=== PATIENT | male | born 1995 | race Caucasian/White ===

== ENCOUNTER 2025-04-07 20:22 | Inpatient (IN) | payer SELFPAY ==
--- NOTE | ~2025-04-07 | CT_ITS ---
CLINICAL HISTORY: fever, abd pain CT abdomen and pelvis with contrast Comparison: None provided Findings: The lung bases are clear. There is diffuse fatty infiltration of the liver. The spleen is upper limits of normal in size. Adrenal glands, pancreas, gallbladder and kidneys are unremarkable. No hydronephrosis. No bowel obstruction, pneumoperitoneum, or pneumatosis. Normal appendix. Urinary bladder is moderately distended but otherwise unremarkable. No acute fracture. IMPRESSION: No acute findings. Hepatic steatosis. This document has been electronically signed by: Cristobal Johnson MD on 04/08/2025 02:14:06
[2025-04-07 20:32] VITALS: BP 121/69; PULSE 128; RESP 18; TEMP 36.6; O2SAT 98; BMI 38.1
[2025-04-07 20:55] LABS: Hematocrit 48.0 % (42.0-52.0); Hemoglobin 16.6 g/dl (14.0-18.0); Mean Corpuscular HGB Conc 34.6 g/dl (31.0-36.0); Mean Corpuscular Hemoglobin 30.3 pg (27.0-33.0); Mean Corpuscular Volume 87.6 fL (80.0-98.0); NRBC Abs Auto 0.000 X10*3/uL (0.0-0.012); NRBC Pct Auto 0.0 /100WBC (0.0-0.2); Platelet Count 197 X10*3/uL (160-400); Red Blood Count 5.48 X10*6/uL (4.60-5.80); White Blood Count 12.5 X10*3/uL (4.8-10.8)
[2025-04-07 21:08] LABS: Alanine Aminotransferase 112 U/L (0-40); Albumin Level 5.0 g/dL (3.5-5.0); Alkaline Phosphatase 72 U/L (39-117); Anion Gap 14 (12-20); Aspartate Amino Transferase 34 U/L (5-37); Blood Urea Nitrogen 14 mg/dL (9-16); Calcium 9.2 mg/dL (8.4-10.2); Carbon Dioxide 23 mmol/L (22-29); Chloride 107 mmol/L (96-108); Creatinine Clr Calc Pharmacy 143.0; Estimated Glomerular Filt Rate > 60; Lipase 14 U/L (8-78); Potassium 4.0 mmol/L (3.3-5.1); Sodium 140 mmol/L (135-145); Total Protein 7.5 g/dL (6.5-8.0)
[2025-04-07 21:32] LABS: Neutrophils Percent Manual 74 % (45-73)
[2025-04-07 21:42] LABS: Band Neutrophils Percent 20 % (3-5); Lymphocytes Absolute Manual 0.5 X10*3/uL (1.2-4.9); Lymphocytes Percent Manual 4 % (20-40); Monocytes Absolute Manual 0.3 X10*3/uL (0.1-1.2); Monocytes Percent Manual 2 % (2-11); Neutrophils Absolute Manual 11.8 X10*3/uL (2.0-8.3); RBC Morphology NORMAL
[2025-04-07 21:43] LABS: Large Platelet PRESENT; Toxic Vacuolation PRESENT
[2025-04-07 22:31] LABS: Resp Syncy Virus RNA Qual PCR NEGATIVE (Negative); SARS COV2 PCR INHOUSE NEGATIVE (Negative)
--- OUTSIDE RECORDS SUMMARY | 2025-04-07 22:45 | XMS_ITS | Clinical Summary ---
Author Organization [employer] [facility] Address [address] [place] [address] Care Team Providers Care Carton Liner Name Role Phone Marie Sosa MD Primary Care Provid er Unavailable Family History Relation Name Status Comments Father Alive Mother Alive Sister Alive Dave Stephens Social History Tobacco Use Types Packs/Day Years Used Date Smoking Tobacco: Never Alcohol Use Standard Drinks/Week Comments Not Asked 0 (1 standard drink = 0.6 oz pur e alcohol) Sex and Gender Information Value Date Recorded Sex Assigned at Not on file Legal Sex Male 7:38 AM EST Gender Identity Not on file Sexual Orientation Not on file Plan of Treatment Health Maintenance Due Date Last Done Comments HPV Vaccines (3 - Male 3-dose series) 02/09/2016 11/17/2015, 07/19/2014 DTaP,Tdap,and Td Vaccines (7 - Td or Tdap) 09/23/2018 09/23/2008, 08/23/2000, 10/12/1998, Additional history exists HIV Screening 11/04/2023 Hepatitis C Screening 11/04/2023 Social Influencers of Health Screening 11/04/2023 Depression Screening 04/14/2024 COVID-19 Vaccine ( season) 2024 Influenza Vaccine (#1) 2024 04/27/2009, 2009 RSV Immunization Adult Patients (1 - 1-dose 75+ series) 08/01/2071 HIB Vaccines Aged Out 02/23/1997, 12/13, 1996 No longer eligible based on patient's age to complete this topic Hepatitis B Vaccines Completed 04/21/1997, 1996, 1996 IPV Vaccines Completed 08/23/2000, 02/12, 02/23/1997, Additional history exists MMR Vaccines Completed 08/23/2000, 08/15/1997 Pneumococcal Vaccine: Pediatrics (0 to 5 Years) and At-Risk Patients (6 to 49 Years) Completed 08/23/2000 Varicella Vaccines Aged Out 04/21/2004 No longer eligible based on patient's age to complete this topic Meningococcal ACWY Vaccine Completed 07/19/2014, Hepatitis A Vaccines Aged Out No long er eligible based on patient's age to complete this topic Meningococcal B Vaccine Aged Out No l onger eligible based on patient's age to complete this topic RSV Immunization Patients Under 20 months Aged Out No longer eligible based on patient's age to complete this topic Care Teams Carton Liner Relationship Specialty Start Date End Date Marie Sosa MD PCP - General Pediatrics 03/03/15
--- OUTSIDE RECORDS SUMMARY | 2025-04-07 22:45 | XMS_ITS | Data Portability ---
Author Organization [facility] [address] Address [address] [place] [address] Assessment No assessment recorded. Plan of Treatment Reminders Order Date Submit Date Provider Last Modified By Organization Details Last Modified Time Details Appointments None record ed. Lab None record ed. Referral None record ed. Procedures None record ed. Surgeries None record ed. Imaging None record ed. Medication Orders neomyc in-rickey ymyxin -hydro simone 3.5 mg-10, 000 unit/m L-1 % ear drops, susp 023 09/06/19 23 RADHA Not available 18:46:22 Patient TargetsNo targets recorded. Patient Instructions Encounter Date Encounter Id Patient Instructions Last Modified By Organization Details Last Modified Time 09/05/2022 [id number] decrease hearing and pressure bilateral ears requesting irrigation for cerumen removal. denies any fever or fever with chills, denies any SOB or respiratory distress. [email or web address] Not available 09/05/2022 18:45:50 Water in the ear , from swimming or bathing, makes the ear canal prone to infection. Hot and humid weather also predisposes to infection. Symptoms of otitis externa include: ear pain, fullness or itching in the ear, ear drainage, and temporary loss of hearing. These symptoms are similar to those caused by otitis media (middle ear infection). To differentiate between external ear infection and middle ear infection, the provider looks in the ear with an instrument called an otoscope. It is important to distinguish between the two infections, as they are treated differently: External otitis is treated with drops in the ear canal, while middle ear infection is sometimes treated with an antibiotic by mouth. MEASURES YOU SHOULD TAKE TO HELP TREAT EXTERNAL EAR INFECTION: 1. Use the ear drops regularly, as directed on the prescription. 2. The pinzon to treatment is getting the drops down into the canal and keeping the medicine there. To accomplish this: Lie on your side, with the unaffected ear down. Put three to four drops in the infected ear canal, then gently pull the outer ear back and forth several times, working the medicine deeper into the ear canal. Remain still, yreb-vch-cewq-down for about 15 minutes. 3. Keep the ear as dry as possible. Swimming should be postponed until the infection has cleared. Try to avoid getting water in the ear when bathing. If water does get in the ear, the canal can be gently dried with a hair blow dryer. Use the low heat setting, and keep the blow dryer about six inches from the ear. 4. Aizy-clb-takenpw pain medications can relieve discomfort associated with external otitis. Acetaminophen (Tylenol), ibuprofen, or naproxen can be taken, depending on individual preference. 5. Return to the [facility] in about one week. The provider can check to make sure the infection has cleared, continue the medicine if needed, okay a return to swimming, etc. 6. To prevent repeated episodes of otitis externa, try to keep the ear canal dry. Gentle swabbing with Q-tips (never deep into the canal), along with a hair blow dryer (low heat), can be used to dry the ear canal if it gets wet. 7. Should you develop severe pain, fever, severe headache, or stiff neck, see your personal/referral doctor or go to the closest emergency department promptly. Otitis externa does not normally cause these symptoms; another problem, requiring different treatment, could be present [facility] Not available 09/05/2022 18:45:41 Reason for Referral None Reported. Problems No Known Problems Procedures Surgical History Date Name Laterality Status Provider Name and Address Organization Details Recorded Time 3 Cerumen Removal by Irrigation tr Jules NP [address] [place], [address], [place] - [facility] 09/05/2022 18:47:10 Imaging Results None recorded. Procedure Notes None recorded. Medical Equipment None Reported. Allergies Allergen ID Allergen Name Allergen Category Reaction Reaction Severity Criticality Documentation Date Start Date Code Code System Note Provider Name and Address Organization Details Recorded Time 513696 latex environme nt,medica tion rash Not available Not available 09/05/2022 58043 91 RxNorm [facility] Abdalla [facility] 3 18:39:34 Medications Name Sig Start Date Stop Date Status Note LastModified by Organization Details LastModified Time cyclobenzap rine 10 mg tablet TAKE 1 TABLET BY MOUTH EVERY 8 HOURS NEEDED FOR MUSCLE SPASM 09/05 completed Not Available Not Available Not Available meloxicam 15 mg tablet TAKE 1 TABLET BY MOUTH EVERY DAY FOR 15 DAYS NEEDED FOR MUSCLE SPASM 09/05 completed Not Available Not Available Not Available neomycin-po lymyxin-hyd rocort 3.5 mg-10,000 unit/mL-1 % ear drops,susp INSTILL 4 DROPS INTO AFFECTED EAR(S) BY OTIC ROUTE 3 TIMES PER DAY x 7 days. 2022 active Not Available Not Available Not Avai lable Vitals Date Recorded Body height Body mass index (BMI) Body weight Oxygen saturation Heart rate Respiratory rate Body temperature Systolic And Diastolic Provider Name and Address Organization Details Last Updated DateTime 3 180.34 cm 31.8 kg/m2 909004. 06 g 99 % 72 /min 20 /min 97.8 [degF] 121/84 mm[Hg] Zuri Bashir [facility] 3 18:39:10 Social History None recorded. Functional Status None recorded. Mental Status None recorded. Family History Nothing Reported. Medical History No medical history recorded. Past Encounters Encounter ID Performer Location Encounter Start Date Encounter Closed Date Diagnosis/Indication Diagnosis SNOMED-CT Code Diagnosis ICD10 Code Diagnosis IMO Codes Diagnosis Note [id number] [address] [place] [address] 07/22/2018 12:33:44 07/22/2018 13:37:02 [id number] [address] [place] [address] 11/08/2019 10:13:26 11/08/2019 10:43:46 [id number] [address] [facility] [place] [address] 12/06/2021 15:55:33 12/06/2021 17:29:57 [id number] [address] [facility] [place] [address] 02/15/2019 15:13:11 02/15/2019 15:49:57 [id number] [address] [facility] [place] [address] 08/10/2018 13:33:31 08/10/2018 15:11:10 [id number] [address] [facility] [place] [address] 01/14/2018 09:13:30 01/14/2018 10:10:02 [id number] [address] [facility] [address] 08/17/2018 17:00:40 08/17/2018 19:22:17 [id number] [address] [facility] [place] [address] 05/08/2020 16:10:28 05/08/2020 17:23:04 [id number] Dez Jules, DIRECTOR OF TEACHING AND LEARNING [address] [facility] [place] [address] 09/05/2022 18:02:24 09/05/2022 19:26:46 Impacted cerumen in left ear [id number] 073074 H61.22 Otitis ext ramesh of left ear 7000825343 167731 H60.92 Health Concerns Section Related Observation LastModified by Organization Detai ls LastModified Time None Recorded Concern Status LastModified by Organization Details LastModified Time None Recorded Advance Directives Directive None Recorded Payers Insurance Date Sequence Insurance Name Policy Number Policy Alba Covered Member ID Alba Member ID Guarantor Name 11/15/2022 1 [employer] - [employer] - OPEN ACCESS PLUS - [employer] (PPO) [id number] Terrell Stephens [id number] 1 Terrell Stephens 09/05/2022 1 [employer] (PPO) [id number] Terrell Stephens [id number] Terrell Stephens 11/15/2022 1 [employer] [id number] Terrell Stephens [id number] Terrell Stephens Notes Date Note Type Note Provider Name and Address Organization Details Recorded Time 09/06/19 23 text/htm l Ear problem UCReported by PatientHPIFor quality, patient reportscloggedanddecreased hearing. For severity, patient reportsmoderate. For modifying factors, patient reportshurts to lie on, or pull on earbut reportsdoes not hurt to chewandoften has wax accumulation. For associated symptoms, patient reportspopping noise in the ears. For source of patient information, patient reportsinformation obtained from patient,patient arrived at urgent care ambulatory, andlearning styles: auditory. For location, patient reportsleft. For duration, patient reports2 weeks. For context, patient reportsno sick contacts,no recent swimming/water in ear, andno recent air travel. Dez Jules NP [address] [facility], [address], [place] - [facility] 09/05/2022 19:10:53
--- NOTE | 2025-04-07 23:29 | PC.NURSE ---
Addendum entered by Junie Wiseman RN 04/08/25 00:50: pts fluids still infusing. paused to give abx infusion for 30 min. Original Note: pt is a harsd stick. RN was able to obtain a #22 in the RFA. pt will need another line as the abx ordered are not compatible with the LR that is currently infusing.
[2025-04-07 23:48] VITALS: BP 101/56; PULSE 105; RESP 16; TEMP 36.4; O2SAT 98
[2025-04-08] VITALS (13 sets, daily range): BP systolic 98–120; BP diastolic 27–69; PULSE 75–114; RESP 16–25; TEMP 36.4–38.6; O2SAT 96–98; BMI 38.1
[2025-04-08] MEDS: iohexoL 350 MG/ML 100 ML INFUS..BTL 85 ML IV (01:35)
[2025-04-08] MEDS: Lactated Ringers 1,000 ML 999 ML IV ×2 (02:42→04:02)
[2025-04-08 02:43] LABS: Appearance Urine Clear; Glucose Urine UA Negative (Negative); PH 5.0 (5.0-9.0); Specific Gravity - Urine >= 1.030 (1.005-1.025)
--- NOTE | 2025-04-08 04:47 | PC.NURSE ---
abx were ordered before sepsis protocol was intiated. RN waited for blood cultures to be collected prior to starting abx.
--- NOTE | 2025-04-08 06:48 | ED_ITS ---
HPI - Nausea/Vomiting/Diarrhea General Chief complaint: Nausea/Vomiting/Diarrhea Stated complaint: vomiting, headache, dizziness Time Seen by Provider: 04/07/25 22:17 Source: patient Mode of arrival: ambulatory Limitations: no limitations History of Present Illness ED Provider: Dr. Afua Romo HPI Narrative: Mr. Stephens is a previously healthy adult who presents with acute onset vomiting and diarrhea beginning around 08:00 AM today. He reports that ?everything I eat comes back up from either end.? Since onset he has had approximately 6 episodes of emesis and 4 episodes of diarrhea (first two loose with food particles, now watery). He denies hematemesis or blood in stool. The last solid meal was pork, rice, and red beans last night; no one else who ate that meal is ill. He also ate linda-flavored candy not consumed by others. This morning he consumed breakfast and Sprite, both of which were vomited. He endorses fever at home with chills/shivering and later recorded a temperature to 101.4 ?F in the ED, but was 99.9 ?F on initial triage vitals. He describes central/mid-abdominal pain that worsens with oral intake. He has avoided food and fluids for ~3 hours to minimize vomiting. He received acetaminophen in the ED for fever to 101.4 ?F. No recent travel or antibiotic use. Related Data Allergies Allergy/AdvReac Type Severity Reaction Status Date / Time latex Allergy Unknown Verified 04/07/25 20:35 Review of Systems 2 Review of Systems: as per HPI, full review of systems performed and negative but for the above mentioned pertinent positives and negatives. [facility] Social History Social History Smoked in Last 30 Days: Yes Use of substances other than those prescribed or required for medical reasons: No Advance Directives: No Advance Directives Information Provided: No Do you have a plan to hurt others: No Plan Physical Exam 2 Exam: Exam: GENERAL: Ill-Appearing, appears uncomfortable. SKIN: Normal skin color for ethnicity, warm, dry, no rashes noted. HEENT:? Normocephalic, atraumatic, no stridor, dry mucous membranes, dentition intact, EOMI. NECK: Soft, supple, full ROM, midline structures nontender, no step-offs, no deformities, no lymphadenopathy. CHEST: Heart regular tachycardia, no murmurs, symmetric chest rise and fall. PULMONARY: Clear to auscultation bilaterally, diminished at the bases, no labored breathing, no wheezes/rhales/rhonchi. ABDOMINAL: Soft, nondistended, nontender, positive bowel sounds in all quadrants. : Deferred. MUSCULOSKELETAL: Normal tone, full range of motion, no deformities, no peripheral edema. NEURO: Alert and oriented x3, CN II through XII intact, equal strength and sensation bilateral upper and lower extremities, no focal neurologic deficits.? PSYCHIATRIC: Flat affect, fluid speech, good eye contact and appropriate demeanor. Vital Signs: Vital Signs: Last Vital Signs Temp 97.9 F 04/08/25 02:41 Pulse 106 H 04/08/25 02:42 Resp 22 H 04/08/25 02:42 BP 113/53 L 04/08/25 05:30 Pulse Ox 96 04/08/25 02:42 O2 Del Method Room Air 04/08/25 03:01 BMI result Body Mass Index 38.1 Medications Administered Discontinued Medications Generic Name Dose Route Start Last Admin Trade Name Freq PRN Reason Stop Dose Admin Lactated Ringer's 3,714.93 mls @ 3,714.93 mls/hr 04/07/25 22:18 04/08/25 02:40 Lr 30 ml/kg infuse over 1 hr (3714.93 ml) 04/07/25 23:17 Infused IV Infusion .Q1H ONE Piperacillin Sod/Tazobactam 100 mls @ 200 mls/hr 04/07/25 22:18 04/08/25 00:38 Sod 4.5 gm/ Sodium Chloride IV 04/07/25 22:47 Infused ONCE ONE Infusion Acetaminophen 1,000 mg in 100 mls @ 400 mls/hr 04/08/25 01:07 04/08/25 01:28 Ofirmev IV 04/08/25 01:21 Infused ONCE ONE Infusion Lactated Ringer's 1,000 mls @ 999 mls/hr 04/08/25 02:21 04/08/25 03:43 Lr IV 04/08/25 03:21 Infused .Q1H1M ONE Infusion Lactated Ringer's 1,000 mls @ 999 mls/hr 04/08/25 03:50 04/08/25 06:40 Lr IV 04/08/25 04:50 Infused .Q1H1M ONE Infusion Iohexol 85 ml 04/08/25 01:34 04/08/25 01:35 Iohexol 350 Mg/Ml 100 Ml Infus..Btl IV 04/08/25 01:35 85 ml ONCE ONE Administration Ondansetron HCl 4 mg 04/07/25 22:18 04/07/25 22:50 Ondansetron Hcl 4 Mg/2 Ml Vial IVPUSH 04/07/25 22:19 4 mg ONCE ONE Administration Medical Decision Making Medical Decision Making MDM Narrative: Emergency Department Course Initial laboratory evaluation notable for leukocytosis with bandemia. Sepsis protocol initiated with a 30 cc/kg IV fluid bolus (~4 L). Empiric IV antibiotics and IV antiemetic were administered. The patient later spiked a temperature of 101.4 ?F and received acetaminophen. CT of the abdomen showed no evidence of acute process. Despite fluids, blood pressure remained low and heart rate elevated; urine output remained absent. An additional 1 L IV crystalloid was ordered and a bladder scan planned to assess for retention. Stool cultures ordered if specimen obtainable. Despite 6 L of IV fluid, patient remains mildly hypotensive though his map is over 65. He is finally making urine which is extremely dark. I feel at least part of his blood work being so abnormal is related to dehydration and vomiting though his symptoms have only been ongoing for the last 16 hours or so. Ordered stool cultures but he has not made a sample yet. Plan for admission for further care and evaluation. Assessment & Plan 29-year-old male previously healthy presenting with nausea vomiting and diarrhea ongoing for the last 16 hours or so. Differential diagnosis includes gastroenteritis, surgical emergency such as obstruction, enteritis, hyperglycemia, acidosis, food or drug ingestion, pancreatitis, CVA, allergic reaction such as anaphylaxis, cannabis hyperemesis syndrome or cyclic vomiting syndrome, among many others.? Patient is showing signs of acute dehydration or hemodynamic instability.? They are having associated abdominal pain. ? Broad-based work-up was initiated based on above history and physical exam. Diagnoses: * 1. Suspected infectious gastroenteritis / foodborne illness * 2. Dehydration * 3. Possible sepsis secondary to GI infection * 4. Abdominal pain Plan: * IV antiemetic for nausea/vomiting. * Aggressive IV fluid resuscitation: 30 cc/kg bolus (~4 L) per sepsis protocol; administer additional 1 L IV crystalloid and reassess. * Empiric IV antibiotics. * Abdominal imaging obtained (CT abdomen negative for acute pathology). * Stool studies (culture, ova/parasite, viral PCR) when available. * Ice chips and trial of PO fluids after antiemetic, monitor tolerance. * Bladder scan to evaluate for urinary retention. * Continue to monitor for persistent hypotension, tachycardia, and anuria despite fluids. Disposition: Admit to hospitalist for further care and evaluation of sepsis, bandemia, likely enteritis. Differential Diagnosis Differential Diagnoses: The differential diagnosis associated with the presentation includes (as above) Admission/Observation Consideration of admission/observation: Escalation of care including admission/observation considered Consult Healthcare Provider Management of the patient was discussed with: Hospitalist Lab Data MDM Lab Attestation statement: I reviewed the patient's lab results. 04/07/25 20:45 04/07/25 20:45 Labs: Lab Results 04/07/25 04/07/25 04/07/25 Range/Units 20:45 21:50 23:15 WBC 12.5 H (4.8-10.8) X10*3/uL RBC 5.48 (4.60-5.80) X10*6/uL Hgb 16.6 (14.0-18.0) g/dl Hct 48.0 (42.0-52.0) % MCV 87.6 (80.0-98.0) fL MCH 30.3 (27.0-33.0) pg MCHC 34.6 (31.0-36.0) g/dl RDW 12.0 (11.0-16.0) % Plt Count 197 (160-400) X10*3/uL MPV 10.4 (9.4-12.4) fL Immature Gran % (Auto) Cancelled Neut % (Auto) Cancelled Lymph % (Auto) Cancelled [place] % (Auto) Cancelled Eos % (Auto) Cancelled Baso % (Auto) Cancelled Lymph # (Auto) Cancelled [place] # (Auto) Cancelled Eos # (Auto) Cancelled Baso # (Auto) Cancelled Abs Immat Gran (auto) Cancelled Absolute Neuts (auto) Cancelled Absolute Nucleated RBC 0.000 (0.0-0.012) X10*3/uL Nucleated RBC % (auto) 0.0 (0.0-0.2) /100WBC Neutrophils % (Manual) 74 H (45-73) % Band Neutrophils % 20 H (3-5) % Lymphocytes % (Manual) 4 L (20-40) % Monocytes % (Manual) 2 (2-11) % Abs Neuts (Manual) 11.8 H (2.0-8.3) X10*3/uL Lymphocytes # (Manual) 0.5 L (1.2-4.9) X10*3/uL Monocytes # (Manual) 0.3 (0.1-1.2) X10*3/uL Toxic Vacuolation PRESENT Platelet Estimate NORMAL (NORMAL) Large Platelets PRESENT Plt Morphology Comment NOTED RBC Morphology NORMAL Smear Tech's Comments MANUAL DIFF Sodium 140 (135-145) mmol/L Potassium 4.0 (3.3-5.1) mmol/L Chloride 107 (96-108) mmol/L Carbon Dioxide 23 (22-29) mmol/L Anion Gap 14 (12-20) BUN 14 (9-16) mg/dL Creatinine 1.03 (0.5-1.4) mg/dL Estim Creat Clear Calc 143.0 Estimated GFR > 60 Random Glucose 130 H (60-115) mg/dL Lactic Acid 1.9 (0.5-2.0) mmol/L Calcium 9.2 (8.4-10.2) mg/dL Total Bilirubin 2.4 H (0.0-1.0) mg/dL Direct Bilirubin 0.4 (0.0-0.5) mg/dL AST 34 (5-37) U/L ALT 112 H (0-40) U/L Alkaline Phosphatase 72 (39-117) U/L Total Protein 7.5 (6.5-8.0) g/dL Albumin 5.0 (3.5-5.0) g/dL Lipase 14 (8-78) U/L Urine Color Urine Appearance Urine pH (5.0-9.0) Ur Specific [place] (1.005-1.025) Urine Protein (Neg-Trace) mg/dL Urine Glucose (UA) (Negative) mg/dL Urine Ketones (Negative) mg/dL Urine Blood (Negative) Urine Nitrite (Negative) Ur Leukocyte Esterase (Negative) Influenza Type A (PCR) NEGATIVE (Negative) Influenza Type B (PCR) NEGATIVE (Negative) RSV RNA Qual (PCR) NEGATIVE (Negative) SARS-CoV-2 RNA (RT-PCR) NEGATIVE (Negative) 04/08/25 Range/Units 02:33 WBC (4.8-10.8) X10*3/uL RBC (4.60-5.80) X10*6/uL Hgb (14.0-18.0) g/dl Hct (42.0-52.0) % MCV (80.0-98.0) fL MCH (27.0-33.0) pg MCHC (31.0-36.0) g/dl RDW (11.0-16.0) % Plt Count (160-400) X10*3/uL MPV (9.4-12.4) fL Immature Gran % (Auto) Neut % (Auto) Lymph % (Auto) [place] % (Auto) Eos % (Auto) Baso % (Auto) Lymph # (Auto) [place] # (Auto) Eos # (Auto) Baso # (Auto) Abs Immat Gran (auto) Absolute Neuts (auto) Absolute Nucleated RBC (0.0-0.012) X10*3/uL Nucleated RBC % (auto) (0.0-0.2) /100WBC Neutrophils % (Manual) (45-73) % Band Neutrophils % (3-5) % Lymphocytes % (Manual) (20-40) % Monocytes % (Manual) (2-11) % Abs Neuts (Manual) (2.0-8.3) X10*3/uL Lymphocytes # (Manual) (1.2-4.9) X10*3/uL Monocytes # (Manual) (0.1-1.2) X10*3/uL Toxic Vacuolation Platelet Estimate (NORMAL) Large Platelets Plt Morphology Comment RBC Morphology Smear Tech's Comments Sodium (135-145) mmol/L Potassium (3.3-5.1) mmol/L Chloride (96-108) mmol/L Carbon Dioxide (22-29) mmol/L Anion Gap (12-20) BUN (9-16) mg/dL Creatinine (0.5-1.4) mg/dL Estim Creat Clear Calc Estimated GFR Random Glucose (60-115) mg/dL Lactic Acid (0.5-2.0) mmol/L Calcium (8.4-10.2) mg/dL Total Bilirubin (0.0-1.0) mg/dL Direct Bilirubin (0.0-0.5) mg/dL AST (5-37) U/L ALT (0-40) U/L Alkaline Phosphatase (39-117) U/L Total Protein (6.5-8.0) g/dL Albumin (3.5-5.0) g/dL Lipase (8-78) U/L Urine Color Yellow Urine Appearance Clear Urine pH 5.0 (5.0-9.0) Ur Specific [place] >= 1.030 H (1.005-1.025) Urine Protein Negative (Neg-Trace) mg/dL Urine Glucose (UA) Negative (Negative) mg/dL Urine Ketones Negative (Negative) mg/dL Urine Blood Negative (Negative) Urine Nitrite Negative (Negative) Ur Leukocyte Esterase Negative (Negative) Influenza Type A (PCR) (Negative) Influenza Type B (PCR) (Negative) RSV RNA Qual (PCR) (Negative) SARS-CoV-2 RNA (RT-PCR) (Negative) Radiology Impression Discussion of test interpretation with radiology: I have reviewed the radiologist's reading. Radiologist Impression: CT abdomen and pelvis with contrast Comparison: None provided Findings: The lung bases are clear. There is diffuse fatty infiltration of the liver. The spleen is upper limits of normal in size. Adrenal glands, pancreas, gallbladder and kidneys are unremarkable. No hydronephrosis. No bowel obstruction, pneumoperitoneum, or pneumatosis. Normal appendix. Urinary bladder is moderately distended but otherwise unremarkable. No acute fracture. IMPRESSION: No acute findings. Hepatic steatosis. This document has been electronically signed by: Cristobal Johnson MD on 04/08/2025 02:14:06 Critical Care Time Critical Care Time Critical Care Time: Yes Total Critical Care Time: 45 Attestation: CRITICAL CARE TIME: 45 minutes of critical care time was spent in direct patient care at the bedside or in the immediate area with this patient. Critical care was necessary to treat or prevent imminent or life-threatening deterioration of the following conditions septic shock due to gastroenteritis/dehydration. This patient is high risk for decompensation and/or . This time was spent assessing and managing the patient, interpreting labs and imaging, coordinating care with other medical providers, gathering history from either the patient, their representatives, EMS or chart review, and discussing management with admitting team. Discharge Plan Discharge Clinical Impression: Dehydration, Gastroenteritis, Severe sepsis, Bandemia Patient Disposition: Admitted As Inpatient Print Language: Martiniquais
--- NOTE | 2025-04-08 07:34 | P.HPHOSP_ITS ---
History of Present Illness Date of Service: 04/08/25 Attending physician on admission: Sebas Hurtado Chief Complaint: N/V/D This is a 29 year old male who presents with nausea, vomiting and diarrhea. He began having symptoms shortly after eating breakfast on 04/07 around 8am. He ate a family meal the evening before and he ate a family meal on the morning the symptoms began but there is no one else with similar symptoms. He presented to the ED due to persistent symptoms. He had associated abdominal cramping. He reported chills and while in the emergency department was noted to have fever of 101.4, was tachycardic, tachypneic. Blood pressure soft despite receiving 30 cc/kg bolus of fluid. He received 2 additional fluid boluses. Lactic acid was within normal limits. He received empiric antibiotics. CT scan of the abdomen and pelvis showed no acute pathology. Patient denies any recent takeout food or recent travel. He denies urinary symptoms, UA was negative. Flu, RSV and covid 19 screening was negative. Review of Systems 2 Review of Systems: Yes all other systems are reviewed and are negative Constitutional: Constitutional: Reports chills and Reports fever(s) Cardiovascular: Cardiovascular: Denies chest pain, Denies palpitations and Denies dyspnea Respiratory: Respiratory: Denies cough and Denies dyspnea Gastrointestinal: Gastrointestinal: Reports abdominal pain, Reports diarrhea, Reports nausea and Reports vomiting Endocrine: Endocrine: Denies palpitations [facility] Social History Smoked in Last 30 Days: Yes Use of substances other than those prescribed or required for medical reasons: No Advance Directives: No Advance Directives Information Provided: No Do you have a plan to hurt others: No Plan Meds Allergies Allergy/AdvReac Type Severity Reaction Status Date / Time latex Allergy Unknown Verified 04/07/25 20:35 Home Medications ?Medication ?Instructions ?Recorded ?Confirmed ?Last Taken ?Type No Known Home Meds 04/08/25 04/08/25 Un known History Physical Exam 2 Vital Signs and Narrative: Vital Signs: Last Vital Signs Temp 97.9 F 04/08/25 02:41 Pulse 106 H 04/08/25 02:42 Resp 22 H 04/08/25 02:42 BP 113/53 L 04/08/25 05:30 Pulse Ox 96 04/08/25 02:42 O2 Del Method Room Air 04/08/25 03:01 BMI result Body Mass Index 38.1 Const: General: alert and awake Nutritional Appearance: obese O rientation/consciousness: patient oriented x3 Resp: Effort & Inspection: normal respiratory effort, able to speak in complete sentences, no respiratory distress and no use of accessory muscles A uscultation: clear to auscultation bilaterally Cardio: Rate: regular rate Rhythm: regular rhythm GI: Other: no guarding no rebound no regidity Inspection: No distended Palpation (GI): Soft to palpation Neuro: General: patient oriented x3, moves all extremities and CN's II-XI intact bilaterally Extrem: General: No pedal edema Results Labs 04/08/25 07:49 04/08/25 07:49 Labs: Laboratory Results - last 24 hr 04/07/25 04/07/25 04/07/25 20:45 21:50 23:15 MCV 87.6 MCH 30.3 MCHC 34.6 RDW 12.0 Plt Count 197 MPV 10.4 Immature Gran % (Auto) Cancelled Neut % (Auto) Cancelled Lymph % (Auto) Cancelled [place] % (Auto) Cancelled Eos % (Auto) Cancelled Baso % (Auto) Cancelled Lymph # (Auto) Cancelled [place] # (Auto) Cancelled Eos # (Auto) Cancelled Baso # (Auto) Cancelled Abs Immat Gran (auto) Cancelled Absolute Neuts (auto) Cancelled Absolute Nucleated RBC 0.000 Nucleated RBC % (auto) 0.0 Neutrophils % (Manual) 74 H Band Neutrophils % 20 H Lymphocytes % (Manual) 4 L Monocytes % (Manual) 2 Abs Neuts (Manual) 11.8 H Lymphocytes # (Manual) 0.5 L Monocytes # (Manual) 0.3 Toxic Vacuolation PRESENT Platelet Estimate NORMAL Large Platelets PRESENT Plt Morphology Comment NOTED RBC Morphology NORMAL Smear Tech's Comments MANUAL DIFF Anion Gap 14 Estim Creat Clear Calc 143.0 Estimated GFR > 60 Random Glucose 130 H Lactic Acid 1.9 Calcium 9.2 Total Bilirubin 2.4 H Direct Bilirubin 0.4 AST 34 ALT 112 H Alkaline Phosphatase 72 Total Protein 7.5 Albumin 5.0 Lipase 14 Urine Color Urine Appearance Urine pH Ur Specific [place] Urine Protein Urine Glucose (UA) Urine Ketones Urine Blood Urine Nitrite Ur Leukocyte Esterase Influenza Type A (PCR) NEGATIVE Influenza Type B (PCR) NEGATIVE RSV RNA Qual (PCR) NEGATIVE SARS-CoV-2 RNA (RT-PCR) NEGATIVE 04/08/25 02:33 MCV MCH MCHC RDW Plt Count MPV Immature Gran % (Auto) Neut % (Auto) Lymph % (Auto) [place] % (Auto) Eos % (Auto) Baso % (Auto) Lymph # (Auto) [place] # (Auto) Eos # (Auto) Baso # (Auto) Abs Immat Gran (auto) Absolute Neuts (auto) Absolute Nucleated RBC Nucleated RBC % (auto) Neutrophils % (Manual) Band Neutrophils % Lymphocytes % (Manual) Monocytes % (Manual) Abs Neuts (Manual) Lymphocytes # (Manual) Monocytes # (Manual) Toxic Vacuolation Platelet Estimate Large Platelets Plt Morphology Comment RBC Morphology Smear Tech's Comments Anion Gap Estim Creat Clear Calc Estimated GFR Random Glucose Lactic Acid Calcium Total Bilirubin Direct Bilirubin AST ALT Alkaline Phosphatase Total Protein Albumin Lipase Urine Color Yellow Urine Appearance Clear Urine pH 5.0 Ur Specific [place] >= 1.030 H Urine Protein Negative Urine Glucose (UA) Negative Urine Ketones Negative Urine Blood Negative Urine Nitrite Negative Ur Leukocyte Esterase Negative Influenza Type A (PCR) Influenza Type B (PCR) RSV RNA Qual (PCR) SARS-CoV-2 RNA (RT-PCR) Assessment and Plan (1) Gastroenteritis: Status: Acute Plan This is a 29-year-old male with no significant past medical history who presents to the emergency department with nausea, vomiting, diarrhea found to have fever and hypotension probable viral sepsis due to underlying gastroenteritis s/p 30cc/kg bolus lactic acid wnl no indication for further abx at this time continue IVF and monitor bp trend closely check stool studies repeat labs symptomatic support has been unable to tolerate po, start clear liquids and advance as tolerated blood cultures pending Elevated bilirubin no previous labs for comparison possibly due to above trend if no improvement consider abdominal US dvt ppx - mechanical devices, early ambulation Patient will likely require two midnight stay in the hospital for management of hypotension/viral sepsis unable to take po requiring close monitoring of blood pressure Quality Stroke Does the patient have a stroke diagnosis?: No VTE Prior VTE?: No VTE Risk Level:: Medical - moderate - high VTE Device Contraindication: N/A - Device Ordered VTE Drug Contraindication: Treatment Not Indicated
[2025-04-08 07:52] LABS: MANUAL DIFF FLAG NO
[2025-04-08] MEDS: Lactated Ringers 1,000 ML 125 ML IVCONT ×2 (07:56→16:00)
[2025-04-08 07:59] LABS: Hematocrit 38.9 % (42.0-52.0); Hemoglobin 13.4 g/dl (14.0-18.0); Imm Gran Abs Auto 0.02 X10*3/uL (0.00-0.03); Imm Gran Pct Auto 0.3 % (0.0-0.4); Lymphocytes Absolute Auto 1.1 X10*3/uL (1.2-4.9); Mean Corpuscular HGB Conc 34.4 g/dl (31.0-36.0); Mean Corpuscular Hemoglobin 30.5 pg (27.0-33.0); Mean Corpuscular Volume 88.4 fL (80.0-98.0); NRBC Abs Auto 0.000 X10*3/uL (0.0-0.012); NRBC Pct Auto 0.0 /100WBC (0.0-0.2); Platelet Count 146 X10*3/uL (160-400); Red Blood Count 4.40 X10*6/uL (4.60-5.80)
[2025-04-08 08:08] LABS: Alanine Aminotransferase 71 U/L (0-40); Albumin Level 3.6 g/dL (3.5-5.0); Alkaline Phosphatase 51 U/L (39-117); Anion Gap 10 (12-20); Aspartate Amino Transferase 32 U/L (5-37); Blood Urea Nitrogen 10 mg/dL (9-16); Carbon Dioxide 24 mmol/L (22-29); Chloride 108 mmol/L (96-108); Creatinine Clr Calc Pharmacy 191.3; Estimated Glomerular Filt Rate > 60; Potassium 3.4 mmol/L (3.3-5.1); Sodium 139 mmol/L (135-145); Total Protein 5.5 g/dL (6.5-8.0)
[2025-04-08 08:10] LABS: White Blood Count 6.7 X10*3/uL (4.8-10.8)
[2025-04-08 08:13] LABS: Calcium 8.3 mg/dL (8.4-10.2)
--- NOTE | 2025-04-08 08:52 | PHA.MEDREC ---
Addendum entered by Candace Romero RPh 04/08/25 08:53: reviewed Original Note: Pharmacy Consult ? Medication Reconciliation Pharmacy has completed the medication reconciliation. Spoke with pt and he confirmed he is not taking any medications at this time.
[2025-04-09] MEDS: Lactated Ringers 1,000 ML 125 ML IVCONT ×2 (00:03→08:18)
[2025-04-09 03:50] VITALS: BP 124/73; PULSE 75; RESP 18; TEMP 37; O2SAT 99
[2025-04-09 08:00] VITALS: BP 107/58; PULSE 80; RESP 16; O2SAT 95
[2025-04-09] MEDS: 0.9 % Sodium Chloride Flush 3 ML SYRINGE IVFLUSH (08:18)
[2025-04-09 08:50] LABS: Chlamydia pneumoniae PCR Not Detected (Not Detect.); Coronavirus 229E PCR Not Detected (Not Detect.); Coronavirus HKU1 PCR Not Detected (Not Detect.); Coronavirus NL63 PCR Not Detected (Not Detect.); Coronavirus OC43 PCR Not Detected (Not Detect.); RSV PCR Not Detected (Not Detect.); Rhino/Enterovirus PCR Not Detected (Not Detect.)
[2025-04-09 08:57] LABS: SARS-CoV-2 PCR Not Detected (Not Detect.)
[2025-04-09 08:58] LABS: Influenza A H1 PCR Not Detected (Not Detect.); Influenza A H1-2009 PCR Not Detected (Not Detect.); Influenza A H3 PCR Not Detected (Not Detect.)
[2025-04-09 09:20] LABS: Alanine Aminotransferase 91 U/L (0-40); Albumin Level 4.2 g/dL (3.5-5.0); Alkaline Phosphatase 56 U/L (39-117); Anion Gap 11 (12-20); Aspartate Amino Transferase 37 U/L (5-37); Blood Urea Nitrogen 4 mg/dL (9-16); Calcium 8.9 mg/dL (8.4-10.2); Carbon Dioxide 26 mmol/L (22-29); Chloride 106 mmol/L (96-108); Creatinine Clr Calc Pharmacy 196.4; Estimated Glomerular Filt Rate > 60; Potassium 3.5 mmol/L (3.3-5.1); Sodium 139 mmol/L (135-145); Total Protein 6.4 g/dL (6.5-8.0)
[2025-04-09 09:42] LABS: HBS Num1 0.27 mIU/mL (0-7.99); HBc Num1 0.06 S/CO (0.00-0.79); HBsAGNum1 0.33 S/CO (0.00-0.99); Hepatitis A Antibody IgM 0.13 Index (0-0.79); Hepatitis B Surface Antigen Negative (Negative); ~HepC Num1 0.06 S/CO (0.00-0.79); ~Hepatitis A Antibody IgM Nonreactive (Nonreactive); ~Hepatitis B Surface Antibody NONREACTIVE (Nonreactive); ~Hepatitis C Antibody Nonreactive (Nonreactive)
--- NOTE | 2025-04-09 11:45 | PM.DS ---
DS: Providers Provider Date of admission: 04/08/25 06:54 Date of discharge: 04/09/25 Primary care physician: None Physician Attending physician on discharge: Sebas Hurtado Discharging clinician: Sebas Hurtado DS: Diagnosis Discharge Diagnosis (1) Gastroenteritis: Status: Acute DS: Summary Hospital Course Hospital Course: HPI:29 year old male who presents with nausea, vomiting and diarrhea. He began having symptoms shortly after eating breakfast on 04/07 around 8am. He ate a family meal the evening before and he ate a family meal on the morning the symptoms began but there is no one else with similar symptoms. He presented to the ED due to persistent symptoms. He had associated abdominal cramping. He reported chills and while in the emergency department was noted to have fever of 101.4, was tachycardic, tachypneic. Blood pressure soft despite receiving 30 cc/kg bolus of fluid. He received 2 additional fluid boluses. Lactic acid was within normal limits. He received empiric antibiotics. CT scan of the abdomen and pelvis showed no acute pathology. Patient denies any recent takeout food or recent travel. He denies urinary symptoms, UA was negative. Flu, RSV and covid 19 screening was negative. Hospital course: Patient was admitted for possible viral sepsis with the underlying gastro enteritis likely viral-received IV fluid, blood pressure improved, nausea vomiting diarrhea improved with the supportive care, blood culture negative at 24 hours. Leukocytosis improved.RPP negative. Mild bilirubin and ALT elevation-improving, CTA abdomen showed hepatic steatosis, hepatitis a,b,c screen nonreactive. With the above supportive care patient seems to be improved significantly, sepsis resolved,no more diarrhea or nausea vomiting, tolerating diet, patient will be going home encouraged for p.o. intake and hydration. Monitor LFTs outpatient and further workup out patiently. Avoid hepatotoxic medications. If any further worsening of symptoms patient needs to go to nearest emergency room for further evaluation. Above management discussed with the patient detail length he understand and in agreement with the above plan, time spent 40 minute. Time Attestation Total time managing care of this patient today: 40 mintues. Discharge Coordination Time (in mins): 40 min Quality: Safe Use of Opioids Does Pt have an Active Cancer Diagnosis on the Problem List?: No Quality: Stroke Does the patient have a stroke diagnosis?: No Physical Exam Exam: Exam: Appearance: Alert.? Oriented X3.? not in distress.? Eyes: Pupils equal, round and reactive to light.? Sclera nonicteric.? ENT: Pharynx normal.? Moist mucous membranes. cvs: rrr, [id number] . res: clear to auscultation ,no rhonchii or wheezing abd: no rebound or guarding ,nt, bs present. ext pulses present , no cyanosis . neuro: axo3 , nonfocal. Vital Signs: Vital Signs: Last Vital Signs Temp 98.6 F 04/09/25 03:50 Pulse 80 04/09/25 08:00 Resp 16 04/09/25 08:00 BP 107/58 L 04/09/25 08:00 Pulse Ox 95 04/09/25 08:00 O2 Del Method Room Air 04/09/25 08:00 BMI result Body Mass Index 38.1 DS: Data Data Completed and Pending Labs on day of discharge: Laboratory Results - last 24 hr 04/08/25 04/09/25 18:24 08:17 Sodium 139 Potassium 3.5 Chloride 106 Carbon Dioxide 26 Anion Gap 11 L BUN 4 L Creatinine 0.75 Estim Creat Clear Calc 196.4 Estimated GFR > 60 Random Glucose 89 Calcium 8.9 D Total Bilirubin 1.9 H AST 37 ALT 91 H Alkaline Phosphatase 56 Total Protein 6.4 L Albumin 4.2 Respiratory Panel Shahid See Note Adenovirus (Rapid PCR) Not Detected B.pert (TEM-PCR) Not Detected B.parapertussis DNA PCR Not Detected C. pneumoniae DNA (PCR) Not Detected Coronavirus OC43 (PCR) Not Detected Coronavirus HKU1 (PCR) Not Detected Coronavirus 229E (PCR) Not Detected Coronavirus NL63 (PCR) Not Detected Hepatitis A IgM Ab Nonreactive Hep Bs Antigen Negative Hep Bs Antibody NONREACTIVE Hep B Core Total Ab Nonreactive Hepatitis C Ab (EIA) Nonreactive Human Metapneumovir PCR Not Detected Influenza A (RT-PCR) Not Detected Influenza A (H1) PCR Not Detected Influ A (H1/09) PCR Not Detected Influenza A (H3) PCR Not Detected Influenza B (RT-PCR) Not Detected M. pneumoniae (PCR) Not Detected Parainfluenza 1 (PCR) Not Detected Parainfluenza 2 (PCR) Not Detected Parainfluenza 3 (PCR) Not Detected Parainfluenza 4 (PCR) Not Detected RSV (PCR) Not Detected Entero/Rhino (PCR) Not Detected SARS-CoV-2 RNA (RT-PCR) Not Detected Preliminary micro results at discharge 04/07/25 23:15 Blood Culture - Preliminary Blood - Venous No growth after 24 hours. 04/07/25 23:00 Blood Culture - Preliminary Blood - Venous No growth after 24 hours. Imaging Chest x-ray: My impression: ct abd: No acute findings. Hepatic steatosis. Discharge Plan Discharge Anticipated Discharge Date/Time: 04/09/25 11:37 Patient Disposition: Home, Self-Care Discharge Diagnosis: Possible viral gastroenteritis Referrals: Physician,None [Primary Care Provider, Medical] - 1 Week Discharge Medications: New ondansetron 4 mg tablet,disintegrating 4 mg PO Q8H PRN (Reason: nausea and vomiting) Qty: 10 0RF Discharge Orders: Discharge Order (Routine); Ordered 04/09/25 Ordered By: Sebas Hurtado Diet: Advance to usual diet Activity on Discharge: As tolerated Stand Alone Forms: Patient Portal Discharge page Print Language: Yoruba Care Plan Goals: Patient was admitted for possible viral sepsis with the underlying gastro enteritis likely viral-received IV fluid, blood pressure improved, nausea vomiting diarrhea improved with the supportive care, blood culture negative at 24 hours. Leukocytosis improved.RPP negative. Mild bilirubin and ALT elevation-improving, CTA abdomen showed hepatic steatosis, hepatitis a,b,c screen nonreactive. With the above supportive care patient seems to be improved significantly, sepsis resolved,no more diarrhea or nausea vomiting, tolerating diet, patient will be going home encouraged for p.o. intake and hydration. Monitor LFTs outpatient and further workup out patiently. Avoid hepatotoxic medications. If any further worsening of symptoms patient needs to go to nearest emergency room for further evaluation. Health Concerns: As above. Plan of Treatment: As above. Assessment: As above. Discharge Date/Time: 04/09/25 14:07
--- NOTE | 2025-04-09 13:02 | MHC.CM.PN ---
PT REPORTS HE LIVES WITH HIS S/O AND IS INDEPENDENT WITH CARE HE HAS NO SERVICES OR DME DECLINES A HCP NO PCP SAYS HE HAS ALREADY MET WITH [facility] [place] [facility] FOR ASSISTANCE WITH HEALTH INSURANCE DC TODAY, HOME WITH NO SERVICES FAMILY TO TRANSPORT
== END 2025-04-09 14:07 | disposition home or self-care (01) | DRG 872 ==
LOC: HO.ED 22:43 → HO.EDOVER 04-08 06:58 → HO.S3 04-08 11:26
PROVIDERS: Physician Assistant Medical; Admitting Provider Internal Medicine; Emergency Provider Emergency Medicine; Visit Provider Internal Medicine
DX: A41.89 Other specified sepsis (principal); A08.4 Viral intestinal infection, unspecified; K76.0 Fatty (change of) liver, not elsewhere classified; E86.0 Dehydration; Z20.822 Contact with and (suspected) exposure to COVID-19
CPT/HCPCS: 36415; 74177; 80048; 80053; 80076; 81003; 83605; 83690; 85007; 85025; 85027; 86704; 86706; 86709; 86803; 87040; 87340; 87633; 87637; 99285; J0131; J2405; J2543; J7120; Q9967

== ENCOUNTER → 2025-04-08 01:08 | Outpatient (BNV) | payer SELFPAY | PROVIDERS: Emergency Provider Emergency Medicine; Visit Provider Radiology Diagnostic Radiology | DX: K76.0 Fatty (change of) liver, not elsewhere classified (principal) | CPT/HCPCS: 74177 ==

== ENCOUNTER → 2025-04-08 06:54 | Outpatient (BNV) | payer SELFPAY | PROVIDERS: Admitting Provider Internal Medicine; Emergency Provider Emergency Medicine; Visit Provider Physician Assistant Medical | DX: K52.9 Noninfective gastroenteritis and colitis, unspecified (principal); E80.7 Disorder of bilirubin metabolism, unspecified | CPT/HCPCS: 99222; 99239 ==